=== PATIENT | female | born 1965 | race Caucasian/White ===

== ENCOUNTER 2018-10-20 10:17 | Emergency (ER) | payer SELFPAY ==
[~2018-10-20] VITALS: Ht 167.6 cm; Wt 63.6 kg
[~2018-10-20 10:17] MED LIST: ONDA4TAB14 PO
[2018-10-20] MEDS ORDERED: ONDANSETRON 4 MG INJ IV STA (10:23)
[2018-10-20] MEDS ORDERED: SOD CHLORIDE 0.9% 1,000 ML IV STA (10:23)
[2018-10-20] MEDS ORDERED: LORAZEPAM 2 MG INJ IV ONE ×2 (10:30→11:30)
[2018-10-20 10:57] VITALS: Ht 167.6 cm; Wt 63.6 kg
[2018-10-20] MEDS ORDERED: THIAMINE 100 MG TAB PO ONE (11:30)
[2018-10-20] MEDS ORDERED: FOLIC ACID 1 MG TAB PO ONE (11:30)
[2018-10-20 12:44] VITALS: BP 131/81; PULSE 107; RESP 22
== END 2018-10-20 12:56 | disposition home or self-care (01) ==
LOC: E/R 10:17
DX: F10.230 Alcohol dependence with withdrawal, uncomplicated (principal); E86.0 Dehydration
CPT/HCPCS: 80048; 81025; 96361; 96374; 96375; 96376; 99284; J2060; J2405; J7030